=== PATIENT | female | born 1965 | race Two or more races ===

== ENCOUNTER 2023-12-14 17:14 | Emergency (ER) | payer OTHER ==
[~2023-12-14] VITALS: Ht 162.6 cm; Wt 68.9 kg
[2023-12-14 17:21] VITALS: TEMP 98.2
[2023-12-14] MEDS ORDERED: ACETAMINOPHEN ES 500 MG TABLET ONE (17:31)
[2023-12-14] MEDS: ACETAMINOPHEN ES 500 MG TABLET PO ONE (17:33)
[2023-12-14 19:06] VITALS: BP 130/90; O2SAT 98
== END 2023-12-14 19:50 | disposition home or self-care (01) ==
LOC: ER 17:34
DX: R42 Dizziness and giddiness (principal); I10 Essential (primary) hypertension; R51.9 Headache, unspecified; E78.00 Pure hypercholesterolemia, unspecified; V89.2XXA Person injured in unspecified motor-vehicle accident, traffic, initial encounter; Y93.89 Activity, other specified; Y92.89 Other specified places as the place of occurrence of the external cause; Y99.8 Other external cause status
CPT/HCPCS: 70450-TC; 72125-TC